=== PATIENT | male | born 1990 ===

== ENCOUNTER 2017-05-29 14:10 | Inpatient (IN) | payer SELFPAY ==
[2017-05-29 15:28] LABS: HEMOGLOBIN 16.2 g/dL (12.0-18.0); MEAN CORPUSCULAR HEMOGLOBIN 32.9 pg (27.0-31.0); MEAN CORPUSCULAR HGB CONC 34.2 g/dL (33.0-37.0); RBC 4.94 Mil/uL (4.40-5.90); RED CELL DISTRIBUTION WIDTH 14.4 % (11.5-14.5)
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
[2017-05-29 15:42] LABS: GRANULAR CAST 24 /lpf (0-1); SQUAMOUS EPITHIAL 1 /hpf (0-5); URINE BACTERIA RARE (<OCC); URINE BILIRUBIN MODERATE (NEGATIVE); URINE BLOOD SMALL (NEGATIVE); URINE CLARITY CLOUDY (Clear); URINE COLOR AMBER (YELLOW); URINE GLUCOSE (UA) NEG (Normal); URINE LEUKOCYTE ESTERASE NEG Leu/uL (Negative); URINE NITRATE NEGATIVE (NEGATIVE); URINE PROTEIN >=500 mg/dL (NEGATIVE)
[2017-05-29 16:10] LABS: BARBITURATES, UR NEGATIVE (NEGATIVE); BENZODIAZEPINES, UR POSITIVE (NEGATIVE); OPIATES, UR NEGATIVE (NEGATIVE); PHENCYCLIDINE, UR NEGATIVE (NEGATIVE)
[2017-05-29] MEDS ORDERED: Sodium Chloride 0.9% 1,000 ML IV STA ×2 (17:37)
[2017-05-29 17:59] LABS: ALBUMIN 4.9 g/dL (3.5-5.0); ALT/SGPT 214 U/L (21-72); AST/SGOT 304 U/L (17-59); BLOOD UREA NITROGEN 18 mg/dl (9-20); CALCIUM 10.1 mg/dL (8.4-10.2); GFR AFRICAN-AMERICAN > 60; GFR NON-AFRICAN AMERICAN > 60
--- NOTE | 2017-05-29 18:27 | CT ---
PROCEDURE: CT HEAD WITHOUT CONTRAST. HISTORY: psychosis COMPARISON: None available. TECHNIQUE: Axial computed tomography images were obtained through the head/brain without intravenous contrast. Radiation dose: Total exam DLP = 866.90 mGy-cm. This CT exam was performed using one or more of the following dose reduction techniques: Automated exposure control, adjustment of the mA and/or kV according to patient size, and/or use of iterative reconstruction technique. FINDINGS: HEMORRHAGE: No intracranial hemorrhage. BRAIN: No mass effect or edema. No atrophy or chronic microvascular ischemic changes. VENTRICLES: Unremarkable. No hydrocephalus. CALVARIUM: Unremarkable. PARANASAL SINUSES: Unremarkable as visualized. No significant inflammatory changes. MASTOID AIR CELLS: Unremarkable as visualized. No inflammatory changes. OTHER FINDINGS: None. IMPRESSION: No acute intracranial abnormalities. No significant findings to account for the clinical presentation.
[2017-05-29 22:00] LABS: ALB/GLOB RATIO 1.1 (1.0-2.1); ALBUMIN 4.1 g/dL (3.5-5.0); ALT/SGPT 185 U/L (21-72); AST/SGOT 254 U/L (17-59); BLOOD UREA NITROGEN 15 mg/dl (9-20); CALCIUM 8.8 mg/dL (8.4-10.2); GFR AFRICAN-AMERICAN > 60; GFR NON-AFRICAN AMERICAN > 60
[2017-05-29] MEDS ORDERED: Potassium Chloride 20 mEq ER Tab PO STA (22:26)
[2017-05-29] MEDS ORDERED: Potassium Chloride 20 mEq ER Tab PO ONE (22:52)
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
[2017-05-30] MEDS: Sodium Chloride 0.9% 1,000 ML IV SCH ×6 (00:09→23:17)
[2017-05-30 01:01] VITALS: RESP 18
[2017-05-30 07:14] LABS: HEMOGLOBIN 13.8 g/dL (12.0-18.0); MEAN CELL VOLUME 95.9 fl (80.0-94.0); MEAN CORPUSCULAR HEMOGLOBIN 32.8 pg (27.0-31.0); MEAN CORPUSCULAR HGB CONC 34.2 g/dL (33.0-37.0); RBC 4.2 Mil/uL (4.40-5.90); RED CELL DISTRIBUTION WIDTH 14.4 % (11.5-14.5); WHITE BLOOD COUNT 5.6 K/uL (4.8-10.8)
[2017-05-30 07:29] LABS: INR 1.2 (0.9-1.2)
[2017-05-30 07:44] LABS: ALB/GLOB RATIO 1.1 (1.0-2.1); ALBUMIN 3.9 g/dL (3.5-5.0); ALT/SGPT 207 U/L (21-72); AST/SGOT 351 U/L (17-59); BLOOD UREA NITROGEN 14 mg/dl (9-20); GFR AFRICAN-AMERICAN > 60; GFR NON-AFRICAN AMERICAN > 60
[2017-05-30] MEDS: Enoxaparin 40 mg Syringe SC SCH (10:13)
[2017-05-30] MEDS: Multiple Vitamins Oral Solution PO SCH (10:13)
--- NOTE | 2017-05-30 10:17 | US ---
HISTORY: abnormal LFTs COMPARISON: None. TECHNIQUE: Grayscale imaging was performed. FINDINGS: LIVER: Measures 18.4 cm in length. There is diffuse increased echogenicity of the liver parenchyma. No mass. No intrahepatic bile duct dilatation. GALLBLADDER: Unremarkable. No gallstones. COMMON BILE DUCT: Measures 2.9 mm. No stones. No dilatation. PANCREAS: Unremarkable as visualized. No mass. No ductal dilatation. RIGHT KIDNEY: Measures 11.1 cm in length. Normal echogenicity. No calculus, mass, or hydronephrosis. AORTA: No aneurysmal dilatation. IVC: Unremarkable. OTHER FINDINGS: None . IMPRESSION: Mild hepatomegaly Diffuse increased echogenicity in the liver may reflect hepatic steatosis however parenchymal infectious/ inflammatory etiologies cannot be entirely excluded. Clinical and laboratory correlation is advised. A preliminary report was provided by [facility].
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
[2017-05-30 16:05] VITALS: TEMP 98.4
[2017-05-30 16:51] LABS: HEPATITIS B SURFACE AG NEGATIVE (NEGATIVE)
[2017-05-30 16:57] LABS: HEPATITIS A IGM NEGATIVE (NEGATIVE); HEPATITIS B CORE AB NEGATIVE (NEGATIVE)
[2017-05-30 17:09] LABS: HEPATITIS C ANTIBODY NEGATIVE (NEGATIVE)
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
[2017-05-31] MEDS: Sodium Chloride 0.9% 1,000 ML IV SCH ×3 (03:54→09:14)
[2017-05-31] MEDS: Enoxaparin 40 mg Syringe SC SCH (09:15)
[2017-05-31] MEDS: Multiple Vitamins Oral Solution PO SCH (09:15)
[2017-05-31 11:07] LABS: ALB/GLOB RATIO 1.1 (1.0-2.1); ALT/SGPT 199 U/L (21-72); AST/SGOT 247 U/L (17-59); BLOOD UREA NITROGEN 5 mg/dl (9-20); CALCIUM 9.1 mg/dL (8.4-10.2); GFR AFRICAN-AMERICAN > 60; GFR NON-AFRICAN AMERICAN > 60
--- NOTE | 2017-05-31 11:37 | CP.PCM.DIS ---
Provider - Provider Date of Admission: 05/29/17 22:03 Attending physician: Jaqui Parsons DO Time Spent in preparation of Discharge (in minutes): 20 Diagnosis - Discharge Diagnosis (1) Rhabdomyolysis Status: Acute (2) Psychosis Status: Acute (3) Alcoholism /alcohol abuse Status: Chronic (4) Transaminitis Status: Acute Hospital Course - Lab Results Lab Results: Most Recent Lab Values WBC 5.6 K/uL (4.8-10.8) 05/30/17 05:25 RBC 4.20 Mil/uL (4.40-5.90) L 05/30/17 05:25 Hgb 13.8 g/dL (12.0-18.0) D 05/30/17 05:25 Hct 40.2 % (35.0-51.0) 05/30/17 05:25 MCV 95.9 fl (80.0-94.0) H 05/30/17 05:25 MCH 32.8 pg (27.0-31.0) H 05/30/17 05:25 MCHC 34.2 g/dL (33.0-37.0) 05/30/17 05:25 RDW 14.4 % (11.5-14.5) 05/30/17 05:25 Plt Count 127 K/uL (130-400) L D 05/30/17 05:25 PT 13.0 Seconds (9.8-13.1) 05/30/17 05:25 INR 1.2 (0.9-1.2) 05/30/17 05:25 APTT 32.0 Seconds (25.6-37.1) 05/30/17 05:25 Sodium 140 mmol/l (132-148) 05/31/17 10:00 Potassium 4.3 MMOL/L (3.6-5.0) 05/31/17 10:00 Chloride 104 mmol/L (98-107) 05/31/17 10:00 Carbon Dioxide 27 mmol/L (22-30) 05/31/17 10:00 Anion Gap 12 (10-20) 05/31/17 10:00 BUN 5 mg/dl (9-20) L 05/31/17 10:00 Creatinine 0.6 mg/dL (0.8-1.5) L 05/31/17 10:00 Est GFR ( Amer) > 60 05/31/17 10:00 Est GFR (Non-Af Amer) > 60 05/31/17 10:00 POC Glucose (mg/dL) 90 mg/dL (65-110) 05/29/17 14:34 Random Glucose 102 mg/dL (75-110) 05/31/17 10:00 Calcium 9.1 mg/dL (8.4-10.2) 05/31/17 10:00 Total Bilirubin 1.2 mg/dl (0.2-1.3) 05/31/17 10:00 AST 247 U/L (17-59) H D 05/31/17 10:00 ALT 199 U/L (21-72) H 05/31/17 10:00 Alkaline Phosphatase 114 U/L (38-126) 05/31/17 10:00 Ammonia 25 umo/L (16-60) 05/29/17 21:30 Total Creatine Kinase 388 U/L (55-170) H 05/31/17 10:00 Total Protein 7.4 G/DL (6.3-8.2) 05/31/17 10:00 Albumin 4.0 g/dL (3.5-5.0) 05/31/17 10:00 Globulin 3.5 gm/dL (2.2-3.9) 05/31/17 10:00 Albumin/Globulin Ratio 1.1 (1.0-2.1) 05/31/17 10:00 Urine Color Jessica (YELLOW) 05/29/17 15:30 Urine Clarity Cloudy (Clear) 05/29/17 15:30 Urine pH 5.0 (5.0-8.0) 05/29/17 15:30 Ur Specific [place] 1.035 (1.003-1.030) H 05/29/17 15:30 Urine Protein >=500 mg/dL (NEGATIVE) 05/29/17 15:30 Urine Glucose (UA) Neg mg/dL (Normal) 05/29/17 15:30 Urine Ketones Trace mg/dL (NEGATIVE) 05/29/17 15:30 Urine Blood Small (NEGATIVE) 05/29/17 15:30 Urine Nitrate Negative (NEGATIVE) 05/29/17 15:30 Urine Bilirubin Moderate (NEGATIVE) 05/29/17 15:30 Urine Urobilinogen 4.0 mg/dL (0.2-1.0) 05/29/17 15:30 Ur Leukocyte Esterase Neg Mer/uL (Negative) 05/29/17 15:30 Urine RBC (Auto) 5 /hpf (0-3) H 05/29/17 15:30 Urine Microscopic WBC 13 /hpf (0-5) H 05/29/17 15:30 Ur Squamous Epith Cells 1 /hpf (0-5) 05/29/17 15:30 Urine Bacteria Rare (<OCC) 05/29/17 15:30 Hyaline Casts 11-20 /hpf (0-2) H 05/29/17 15:30 Granular Casts (Auto) 24 /lpf (0-1) 05/29/17 15:30 Urine Opiates Screen Negative (NEGATIVE) 05/29/17 15:30 Urine Methadone Screen Negative (NEGATIVE) 05/29/17 15:30 Ur Barbiturates Screen Negative (NEGATIVE) 05/29/17 15:30 Ur Phencyclidine Scrn Negative (NEGATIVE) 05/29/17 15:30 Ur Amphetamines Screen Negative (NEGATIVE) 05/29/17 15:30 U Benzodiazepines Scrn Positive (NEGATIVE) H 05/29/17 15:30 U Oth Cocaine Metabols Negative (NEGATIVE) 05/29/17 15:30 U Cannabinoids Screen Negative (NEGATIVE) 05/29/17 15:30 Alcohol, Quantitative 130 mg/dl (0-10) H 05/29/17 17:30 Hepatitis A IgM Ab Negative (NEGATIVE) 05/30/17 07:02 Hep Bs Antigen Negative (NEGATIVE) 05/30/17 07:02 Hep B Core IgM Ab Negative (NEGATIVE) 05/30/17 07:02 Hepatitis C Antibody Negative (NEGATIVE) 05/30/17 07:02 - Hospital Course Hospital Course: 26 year old male with no past medical history presented to the emergency room with psychosis after heavy drinking. In ER, patient found to be in rhabdomyolysis with CK of 900 so admitted to medical floor and started on IVF. CPK trending down Psych consulted. Patient refused voluntary admission and he was not found to be a candidate for involuntary admission 1.Rhabdomyolysis CK 966 on admission and now trending down to 300 UA with hyaline casts aggressive fluid hydration NS @ 200 ml/hr will d/c home , Crea normal, continue PO hydration at home 2.Elevated transaminases Most likely due to alcoholic hepatitis Otto 3.2 AST/AL 355/207 Liver US showed steatosis Counseled patient on ETOH abuse hepatitis profile: negative 3. Alcoholism ETOH level 130 Started Thiamine, Folic acid, MVI Ativan PRn seizure / withdrawal precautions Counselled patient Patient states that would like to go for detox program to [place] once medically cleared for discharge - advised pt to go [facility] Pt is alert, oriented x 3, no signs of alcohol withdrawal , no tremors, gait stable 4.Psychosis likely sec to alcohol Psychiatry Consult appreciated no need for involuntary psych admission pt is now alert, oriented x 3 , psychosis resolved d/c 1 :1 5. Thrombocytopenia,mild Most likely secondary to ETOh abuse 6. DVt prophylaxis SCD Discharge Exam - Head Exam Head Exam: ATRAUMATIC, NORMAL INSPECTION, NORMOCEPHALIC - Eye Exam Eye Exam: EOMI, Normal appearance, PERRL Pupil Exam: NORMAL ACCOMODATION - ENT Exam ENT Exam: Mucous Membranes Moist, Normal External Ear Exam - Neck Exam Neck exam: Full Rom - Respiratory Exam Respiratory Exam: NORMAL BREATHING PATTERN. absent: Respiratory Distress - Cardiovascular Exam Cardiovascular Exam: REGULAR RHYTHM, +S1, +S2 - GI/Abdominal Exam GI & Abdominal Exam: Normal Bowel Sounds, Soft. absent: Tenderness - Extremities Exam Extremities exam: full ROM, normal capillary refill, normal inspection, pedal pulses present - Back Exam Back exam: FULL ROM. absent: CVA tenderness (L), CVA tenderness (R) - Neurological Exam Neurological exam: Alert, CN II-XII Intact, Normal Gait, Oriented x3, Reflexes Normal - Psychiatric Exam Psychiatric exam: Normal Affect, Normal Mood - Skin Skin Exam: Dry, Normal Color, Warm Discharge Plan - Discharge Medications Prescriptions: Multivitamin [Daily Vitamin Formula] 1 each PO DAILY #1 tablet - Follow Up Plan Condition: GOOD Disposition: HOME/ ROUTINE Instructions: Rhabdomyolysis (DC) Additional Instructions: abstain from Alcohol AA referral Increase oral fluid intake appt [facility] in 2 wks Referrals: [facility] [place] [Outside]
[2017-05-31 12:23] VITALS: BP 156/98; PULSE 60; O2SAT 98
== END 2017-05-31 13:55 | disposition home or self-care (01) | DRG 558 ==
LOC: H.ER 14:10 → H.ERHOLD 22:03 → H.MEDSURG1 23:44
PROVIDERS: ADMIT Student in an Organized Health Care Education/Training Program; ATTEND Student in an Organized Health Care Education/Training Program
DX: M62.82 Rhabdomyolysis (principal); D69.6 Thrombocytopenia, unspecified; K70.10 Alcoholic hepatitis without ascites; F10.229 Alcohol dependence with intoxication, unspecified; F29 Unspecified psychosis not due to a substance or known physiological condition; Y90.6 Blood alcohol level of 120-199 mg/100 ml; Z87.891 Personal history of nicotine dependence; R74.0 Nonspecific elevation of levels of transaminase and lactic acid dehydrogenase [LDH]